=== PATIENT | male | born 1990 | race Caucasian/White ===

== ENCOUNTER 2022-06-01 13:40 | Emergency (ER) | payer OTHER, SELFPAY ==
[2022-06-01 14:11] VITALS: BP 136/78; PULSE 90; RESP 18; TEMP 36.8; O2SAT 100
--- NOTE | 2022-06-01 15:09 | ED.GENADULT ---
HPI - General Adult General Chief complaint: Upper Respiratory Infection Stated complaint: sorethroat Time Seen by Provider: 06/01/22 15:09 Source: patient Mode of arrival: ambulatory Limitations: no limitations History of Present Illness HPI narrative: 31-year-old male patient presents to the [facility] with complaints of sore throat, congestion, mild cough, body aches, chills and fatigue for the past 2-3 days. Patient denies any fevers that he is aware of. Patient states he has been exposed to COVID, influenza and strep in the recent weeks. Related Data Home Medications Medication Instructions Recorded Confirmed No Home Medications 06/01/22 06/01/22 Allergies Allergy/AdvReac Type Severity Reaction Status Date / Time No Known Allergies Allergy Verified 06/01/22 14:20 Review of Systems Review of Systems: CONSTITUTIONAL: Denies fever, Body aches and chills, or sweats. EYES: Denies visual changes, redness, or discharge. ENT: positive rhinorrhea, congestion, sore throat, denies otalgia. CARDIOVASCULAR: Denies chest pain, palpitations, or edema. RESPIRATORY: positive cough denies dyspnea. GASTROINTESTINAL: Denies abdominal pain, nausea, vomiting, or diarrhea. GENITOURINARY: Denies dysuria or hematuria. SKIN: Denies rash or itching. MUSCULOSKELETAL: Denies back pain, joint pain, or myalgia. NEUROLOGIC: Denies headache, numbness, or weakness. PSYCHIATRIC: Denies anxiety or depression. [facility] Past Medical History Medical History (Updated 06/01/22 @ 15:25 by WINSTON James) No significant past medical history Comments at the time of my signature I agree with nursing past medical history, surgical, social, and family history. There is no relevant family history pertinent to the presenting complaint. Exam Narrative: GENERAL: Well-appearing, well-nourished, and in no acute distress. HEAD: Normocephalic, atraumatic. EYES: PERRLA and EOMI. ENT: Nares with erythema and edema noted bilaterally, no rhinorrhea or epistaxis. Mucous membranes moist. posterior pharynx with no erythema, tonsillar large man, exudate or lesions present. Bilateral TMs are clear no erythema or foreign bodies the canal. NECK: Supple. No lymphadenopathy CHEST: Clear to auscultation. No respiratory distress. HEART: Regular rate and rhythm. No murmur heard. Normal peripheral pulses. ABDOMEN: Soft, nontender, nondistended, normal active bowel sounds. EXTREMITIES: Normal range of motion. No edema. SKIN: Warm, dry, no rash. NEURO: No focal deficits. Alert and oriented x3. Course Course Level of Care: Express Care Visit Reevaluation(s) Reevaluation #1: Re-evaluated patient notified him that he is negative for influenza, COVID and strep today. Discussed with patient that he does have some type of virus but he will need to let it run its course. Continue to treat symptoms with [id number] medication, rest and lots of fluids. Date: 06/01/22 Time: 15:33 Vital Signs Vital signs: Vital Signs Temperature 36.8 C 06/01/22 14:11 Pulse Rate 90 06/01/22 14:11 Respiratory Rate 18 06/01/22 14:11 Blood Pressure 136/78 06/01/22 14:11 Pulse Oximetry 100 06/01/22 14:11 Oxygen Delivery Room Air 06/01/22 14:11 Temperature 36.8 C 06/01/22 14:11 Pulse Rate 90 06/01/22 14:11 Respiratory Rate 18 06/01/22 14:11 Blood Pressure 136/78 06/01/22 14:11 Pulse Oximetry 100 06/01/22 14:11 Oxygen Delivery Room Air 06/01/22 14:11 Vital signs reviewed The patient has been informed that they may have pre-hypertension or Hypertension based on a BP reading in the department. I recommend that the patient call the primary care provider listed on their discharge instructions or a physician of their choice this week to arrange follow up for further evaluation of possible pre-hypertension or Hypertension Medical Decision Making Differential Diagnosis Differential Diagnosis: differential diagnosis: Allergic
== END 2022-06-01 15:30 | disposition home or self-care (01) ==
PROVIDERS: Emergency Provider Nurse Practitioner Family; PCP Family Medicine
DX: J06.9 Acute upper respiratory infection, unspecified (principal); Z20.822 Contact with and (suspected) exposure to COVID-19
CPT/HCPCS: 87081; 87426; 87804; 87880; 99213; C9803; G0463

== ENCOUNTER 2024-12-24 18:41 | Emergency (ER) | payer OTHER, SELFPAY ==
--- NOTE | 2024-12-24 18:51 | ED.SKABFB ---
HPI - Skin/Abscess/Foreign Bdy General Chief complaint: Skin/Abscess/Foreign Body Stated complaint: rash on face Time Seen by Provider: 12/24/24 18:51 Source: patient Mode of arrival: ambulatory Limitations: no limitations History of Present Illness HPI narrative: 34 yo M presents with rash to face for 5 days. Used [employer] bug spray 6 nights ago. Sprayed it directly onto face. Noticed burning to face and tingling to lips after using bug spray. Woke up next morning and showered and noticed bumpy rash to face. No pain or itching. Has been using OTC cortizone cream to face for 5 days without improvement. bumpy rash spread to R axilla today. All systems reviewed and negative except as noted above. Related Data Allergies Allergy/AdvReac Type Severity Reaction Status Date / Time No Known Allergies Allergy Verified 12/24/24 18:52 [facility] Past Medical History Medical History (Updated 12/24/24 @ 19:00 by Erin Vila NP) No significant past medical history Comments At time of signature, agree with nursing past medical, surgical, social and family history. There is no relevant family history pertinent to the presenting complaint. Exam Narrative: GENERAL: This is a well-nourished, well-developed patient, in no apparent distress. HEAD: normocephalic, atraumatic. EYES: PERRL. Sclera clear/white. Vision is grossly intact. EARS: External ears normal NOSE: External nose normal NECK: Neck supple, non-tender without lymphadenopathy, masses or thyromegaly. CARDIOVASCULAR: Regular rate and rhythm without murmurs, gallops, or rubs. RESPIRATORY: Clear to auscultation. Breath sounds equal bilaterally. No wheezes, rales, or rhonchi. SKIN: warm, Dry, intact , good texture and turgor. erythematous papular rash to face, L side of anterior neck and R axilla NEURO: awake, alert, and oriented to person, place and time. There were no obvious focal neurologic abnormalities. EXTREMITIES: No joint tenderness, effusion, or edema noted. Course Course Level of Care: Express Care Visit Vital Signs Vital signs: reviewed MDM - Skin/Abscess/Foreign Bdy MDM Narrative Medical decision making narrative: rash most likely allergic reaction caused from spraying bug spray directly onto face as he states no other new products that he has came in contact with. tried OTC steroid cream with no change to rash. Will do prednisone taper and zyrtec. Will see PCP if not improving. Discharge Plan Discharge Clinical Impression: Allergic reaction Qualifiers: Encounter type: initial encounter Qualified Code(s): T78.40XA - Allergy, unspecified, initial encounter Patient Disposition: Home Condition: Stable Instructions: General Allergic Reaction (ED) Additional Instructions: Take prednisone taper as prescribed. Take zyrtec daily while treating allergic reaction. Avoid apply steroid creams to face. See your doctor if not improvoing. Patient Language: Guatemalan Prescriptions: New prednisone 10 mg tablet See Rx Instructions .ROUTE .COMPLEX Qty: 30 0RF Rx Instructions: Take 5 tablets for 2 days, take 4 tablets for 2 days, take 3 tablets for 2 days, take 2 tablets for 2 days then take 1 tablet for 2 days Follow-up/Referrals: PHYSICIAN,BRAND ENGINEER [Primary Care Provider] - Time of Disposition: 19:03
[2024-12-24 18:52] VITALS: BP 140/96; PULSE 93; RESP 14; TEMP 36.7; O2SAT 100
== END 2024-12-24 19:06 | disposition home or self-care (01) ==
PROVIDERS: Emergency Provider Nurse Practitioner Family
DX: T78.40XA Allergy, unspecified, initial encounter (principal)
CPT/HCPCS: 99213; G0463